=== PATIENT | female | born 1960 | race Hispanic/Latino ===

== ENCOUNTER 2023-07-27 05:43 | Emergency (ER) | payer BC ==
[~2023-07-27] VITALS: Ht 152.4 cm; Wt 63.5 kg
[2023-07-27 05:44] VITALS: BP 174/96; PULSE 77; RESP 16
[2023-07-27] MEDS ORDERED: [UNRECOGNIZED DRUG - CODE] MC (05:57)
== END 2023-07-27 06:04 | disposition home or self-care (01) ==
LOC: EDH 05:43
DX: L40.9 Psoriasis, unspecified (principal)